=== PATIENT | male | born 1990 | race Caucasian/White ===

== ENCOUNTER → 2020-11-27 | Outpatient (CLI) | payer BC ==
[~2020-11-27] VITALS: Ht 177.8 cm; Wt 72.7 kg
[~2020-11-27] MED LIST: CATHETER FLUSH 10 ML SYR IV PRN; GADOBUTROL 7.5 MMOL/7.5 ML (GADAVIST) VIAL IV ONE; IOHEXOL 300 MG/ML 50 ML (OMNIPAQUE 300) VIAL IV ONE
--- NOTE | 2020-11-27 16:31 | Diagnostic Imaging Report ---
PROCEDURE: MRI left joint upper extremity with contrast. TECHNIQUE: Multiplanar, multisequence contrast-enhanced MRI of the left upper extremity was accomplished. INDICATION: Left shoulder pain, basketball injury. COMPARISON: None FINDINGS: No acute fracture is seen in the left shoulder. Alignment appears normal. The joint is well distended with contrast. The infraspinatus and supraspinatus tendons are intact. The teres minor tendon is intact. The subscapularis tendon is intact. No muscular atrophy is seen. The long head of the biceps tendon is normal in course and signal. There is a small sublabral foramen at the anterior superior labrum. No labral tear is seen. The Aber view is suboptimal due to motion artifact. The acromion has a curved undersurface without hooking. The coracoclavicular and coracoacromial ligaments are intact. The inferior glenohumeral ligament is intact. Mild fluid signal is seen in the anterior soft tissues from the recent injection. No soft tissue masses or fluid collections are seen. IMPRESSION: 1. No rotator cuff or labral tear is seen in the left shoulder. Dictated by: Dictated on workstation # [id number]
--- NOTE | 2020-11-27 17:55 | Diagnostic Imaging Report ---
INDICATION: Left shoulder pain. Patient was brought to the procedure room, placed on table in the supine position. Skin of the left shoulder was prepped and draped in the usual sterile fashion. Small amount of 1% lidocaine was utilized for local anesthesia. A 22-gauge needle was advanced to left shoulder at the rotator interval. A 15 mL solution of iodinated contrast, normal saline and gadolinium was injected under fluoroscopic observation. A total of 17 seconds fluoroscopic time was utilized. Needle was withdrawn and hemostasis was obtained. Patient tolerated the procedure well and was sent to MRI in satisfactory condition. IMPRESSION: Successful left shoulder injection of gadolinium contrast solution, using fluoroscopy. Dictated by: Dictated on workstation # [id number]
== END ==
LOC: RAD 12:22
PROVIDERS: ATTEND Nurse Practitioner
DX: S43.432A Superior glenoid labrum lesion of left shoulder, initial encounter (principal); W21.05XA Struck by basketball, initial encounter
CPT/HCPCS: 23350; 73040; 73222